=== PATIENT | male | born 1955 | race Caucasian/White ===

== ENCOUNTER 2017-07-02 15:53 | Emergency (ER) | payer OTHER ==
--- NOTE | 2017-07-02 18:43 | EDM.PDOC ---
ED HPI GENERAL MEDICAL PROBLEM - General Chief Complaint: General Stated Complaint: PANIC ATTACK? NUMBNESS IN ARMS & HEAD Time Seen by Provider: 07/02/17 18:20 Source of Information: Reports: Patient, Family History Limitations: Reports: No Limitations - History of Present Illness INITIAL COMMENTS - FREE TEXT/NARRATIVE: 62-year-old male with a long history of anxiety has had worsening symptoms over the past several weeks. It tends to happen when he is in the" tall room or at work when it's warm, he gets short of breath and tingly in his hands. He can usually calm down especially if there is a TV around but there wasn't over the weekend and it was worse. He called the clinic today to make an appointment to talk about treatment for this and they sent him to the emergency room. He is currently asymptomatic. Severity: Moderate (No significant symptoms at this time) - Related Data Allergies Allergy/AdvReac Type Severity Reaction Status Date / Time No Known Allergies Allergy Verified 07/02/17 17:35 Home Meds: Home Meds Acetaminophen [Tylenol] 650 mg PO Q4H PRN 07/02/17 [History] Lisinopril [Prinivil] 5 mg PO DAILY 07/02/17 [History] Past Medical History HEENT History: Reports: Impaired Vision Cardiovascular History: Reports: Hypertension Respiratory History: Reports: SOB Gastrointestinal History: Reports: GERD Musculoskeletal History: Reports: Fracture Psychiatric History: Reports: Anxiety - Past Surgical History Musculoskeletal Surgical History: Reports: Other (See Below) Other Musculoskeletal Surgeries/Procedures:: right ankle ORIF Social & Family History - Tobacco Use Smoking Status *Q: Never Smoker - Caffeine Use Caffeine Use: Reports: Coffee, Soda Other Caffeine Use: 1 cup a day - Alcohol Use Days Per Week of Alcohol Use: 2 Number of Drinks Per Day: 2 Total Drinks Per Week: 4 - Recreational Drug Use Recreational Drug Use: No ED ROS GENERAL - Review of Systems Review Of Systems: See Below Constitutional: Denies: Fever, Chills HEENT: Reports: No Symptoms Respiratory: Reports: Shortness of Breath GI/Abdominal: Denies: Abdominal Pain, Nausea, Vomiting Neurological: Reports: Paresthesia (Some paresthesias in his hands when his anxiety is at its worst) ED EXAM, GENERAL - Physical Exam Exam: See Below Exam Limited By: No Limitations General Appearance: Alert, No Apparent Distress Respiratory/Chest: No Respiratory Distress, Lungs Clear Cardiovascular: Regular Rate, Rhythm Extremities: Normal Inspection Neurological: Alert, Oriented, No Motor/Sensory Deficits Course - Vital Signs Last Recorded V/S: Last Vital Signs Temp 96.7 F 07/02/17 17:53 Pulse 78 07/02/17 17:53 Resp 16 07/02/17 17:53 BP 162/85 H 07/02/17 17:53 Pulse Ox 99 07/02/17 17:53 - Re-Assessments/Exams Free Text/Narrative Re-Assessment/Exam: 07/02/17 18:41 After discussion of the symptoms of anxiety and treatment, because he is not able to get into the clinic in the near future he was started on 20 mg of Celexa daily and given a one-month supply. I also gave him 10 doses of 0.5 mg Xanax to use sparingly but he is going to call the clinic tomorrow and make an appointment. Departure - Departure Time of Disposition: 18:58 Disposition: Home, Self-Care 01 Condition: Good Clinical Impression: Anxiety - Discharge Information Instructions: Panic Attack, [id number] Referrals: Tulio Aguilar MD [Primary Care Provider] - Forms: ED Department Discharge Care Plan Goals: Start Celexa 20 mg daily, and use Xanax sparingly if needed for acute symptoms. Recheck at the clinic in the next 1-2 weeks to discuss whether the medications were starting to work or helpful. Return sooner if worsening such as increased chest pain or other concerns.
== END 2017-07-02 19:00 | disposition home or self-care (01) ==
LOC: JP.ED 15:53
DX: F41.9 Anxiety disorder, unspecified (principal); I10 Essential (primary) hypertension; K21.9 Gastro-esophageal reflux disease without esophagitis; Z79.899 Other long term (current) drug therapy
CPT/HCPCS: 99284

== ENCOUNTER 2021-03-19 06:59 | Day surgery (SDC) | payer MEDICARE, OTHER ==
[2021-03-19] MEDS: Sodium Chloride 0.9% 1,000 ML IV SCH (07:20)
[2021-03-19] MEDS ORDERED: Midazolam 1 MG/ML 2 ML SDV ONE (07:23)
[2021-03-19] MEDS ORDERED: Propofol 200 MG/20 ML SDV ONE (07:23)
[2021-03-19] MEDS ORDERED: fentaNYL 100 MCG/2 ML SDV ONE (07:23)
== END 2021-03-19 09:50 | disposition home or self-care (01) ==
LOC: JP.SDS 06:59
PROVIDERS: ATTEND Surgery
DX: D12.4 Benign neoplasm of descending colon (principal); I10 Essential (primary) hypertension; K21.9 Gastro-esophageal reflux disease without esophagitis
CPT/HCPCS: 88305; J2250; J2704; J3010; J7030